=== PATIENT | female | born 1965 | race Caucasian/White ===

== ENCOUNTER 2017-12-25 05:57 | Inpatient (IN) ==
[2017-12-25] MEDS ORDERED: POTASSIUM CHLORIDE RIDER 10 MEQ in PREMIX 1 EACH IV PRN (06:16)
[2017-12-25] MEDS ORDERED: MAGNESIUM SULF RIDER 2 GM in PREMIX 1 EACH IV PRN (06:16)
[2017-12-25] MEDS ORDERED: DIAZEPAM 5 MG TABLET PO ONE (06:30)
[2017-12-25] MEDS ORDERED: ASPIRIN 325 MG TABLET PO ONE (06:30)
[2017-12-25] MEDS ORDERED: diphenhydrAMINE CAP 25 MG CAPSULE PO ONE (06:30)
[2017-12-25 07:14] LABS: Basophils # 0.1 10*3/uL (0.0-0.2); Basophils % 0.8 % (0.0-0.8); Eosinophils # 0.2 10*3/uL (0.0-0.87); Eosinophils % 2.9 % (0.00-10.9); Hematocrit 40.3 VOL% (35.7-47.0); Hemoglobin 12.8 GM/DL (12.0-16.0); Immature Granulocytes % 0.5 %; Immature Granulocytes Absolute 0.04 #; Lymphocytes % 11.9 % (21.3-54.2); Mean Corpuscular HGB Conc 31.8 GM/DL (32-36); Mean Corpuscular Hemoglobin 27 PG (27-34); Mean Corpuscular Volume 85.7 FL (87-102); Mean Platelet Volume 10.8 FL (9.6-12.0); Monocytes # 0.5 10*3/uL (0.11-0.8); Monocytes % 6.3 % (1.7-12.7); Neutrophils # 6.5 10*3/uL (1.4-7.4); Neutrophils % 77.6 % (38.7-73.9); Platelet Count 283 T/CUMM (130-400); Red Cell Distribution Width 13.7 % (9.3-17.3); White Blood Count 8.4 T/CUMM (4-12)
[2017-12-25 07:23] LABS: INR 1.1; PT Patient Result 11.4 SECS
[2017-12-25 07:39] LABS: Calcium 9.2 MG/DL (8.5-10.1); Osmolality,Calculated 284.4 MOS/KG (273-304); Potassium 3.9 MMOL/L (3.5-5.1)
[2017-12-25] MEDS ORDERED: diphenhydrAMINE CAP 25 MG CAPSULE ONE (09:11)
[2017-12-25] MEDS ORDERED: ASPIRIN 325 MG TABLET ONE (09:11)
[2017-12-25] MEDS ORDERED: DIAZEPAM 5 MG TABLET ONE (09:11)
[2017-12-25] MEDS: SODIUM CHLORIDE 0.9% 1,000 ML IV SCH ×2 (09:14→17:14)
[2017-12-25] MEDS ORDERED: DILTIAZEM 50 MG/10 ML VIAL IV ONE (09:45)
[2017-12-25] MEDS ORDERED: DILTIAZEM 100 MG VIAL.ADD IV ONE ×3 (09:49→09:56)
[2017-12-25] MEDS: DILTIAZEM INJ 100 MG in SODIUM CHLORIDE 0.9% 100 ML IV SCH ×2 (10:10→14:43)
[2017-12-25] MEDS ORDERED: HEPARIN/NACL 0.9% 2 UNITS/ML 2,000 ML IV ONE (10:52)
[2017-12-25] MEDS ORDERED: LIDOCAINE 2% 20 ML VIAL ONE (10:52)
[2017-12-25] MEDS ORDERED: HYDROmorphone 2 MG/1 ML VIAL ONE (11:13)
[2017-12-25] MEDS ORDERED: MIDAZOLAM 2 MG/2 ML VIAL ONE (11:13)
[2017-12-25] MEDS ORDERED: HEPARIN 5,000 UNIT/1 ML VIAL ONE (11:47)
[2017-12-25] MEDS ORDERED: ZALEPLON 5 MG CAPSULE PO PRN (13:21)
[2017-12-25] MEDS ORDERED: FUROSEMIDE 40 MG TABLET PO SCH (16:00)
[2017-12-25] MEDS: ONDANSETRON 4 MG/2 ML VIAL IV PRN (19:54)
[2017-12-25] MEDS: POTASSIUM GLUCONATE 500 MG TABLET PO SCH (23:09)
[2017-12-25] MEDS: BIMATOPROST 0.01% OPH SOLN 2.5 ML BOTTLE BOTH EYES SCH (23:09)
[2017-12-26] MEDS: DILTIAZEM INJ 100 MG in SODIUM CHLORIDE 0.9% 100 ML IV SCH ×2 (01:06→15:54)
[2017-12-26] MEDS: SODIUM CHLORIDE 0.9% 1,000 ML IV SCH ×2 (04:10→14:19)
[2017-12-26 05:57] LABS: Calcium 8.8 MG/DL (8.5-10.1); Osmolality,Calculated 281.5 MOS/KG (273-304); Potassium 4.5 MMOL/L (3.5-5.1)
[2017-12-26] MEDS: FUROSEMIDE 40 MG/4 ML VIAL IV SCH ×2 (09:34→16:19)
[2017-12-26] MEDS: POTASSIUM GLUCONATE 500 MG TABLET PO SCH ×2 (09:35→20:51)
[2017-12-26] MEDS: ENOXAPARIN 100 MG/ML SYRINGE SUBCUT SCH ×2 (09:35→20:51)
[2017-12-26] MEDS: SOTALOL 80 MG TABLET PO SCH ×2 (09:35→20:51)
[2017-12-26] MEDS: ONDANSETRON 4 MG/2 ML VIAL IV PRN (12:44)
[2017-12-26] MEDS: BIMATOPROST 0.01% OPH SOLN 2.5 ML BOTTLE BOTH EYES SCH (20:51)
[2017-12-27] MEDS: SODIUM CHLORIDE 0.9% 1,000 ML IV SCH ×2 (00:42→09:21)
[2017-12-27 05:53] LABS: Basophils # 0.1 10*3/uL (0.0-0.2); Basophils % 0.6 % (0.0-0.8); Eosinophils # 0.1 10*3/uL (0.0-0.87); Eosinophils % 1.4 % (0.00-10.9); Hematocrit 37.8 VOL% (35.7-47.0); Immature Granulocytes % 0.5 %; Immature Granulocytes Absolute 0.04 #; Lymphocytes # 1.4 10*3/uL (1.4-4.0); Lymphocytes % 15.7 % (21.3-54.2); Mean Corpuscular HGB Conc 31.7 GM/DL (32-36); Mean Corpuscular Hemoglobin 27 PG (27-34); Mean Corpuscular Volume 85.5 FL (87-102); Mean Platelet Volume 11.4 FL (9.6-12.0); Monocytes # 0.7 10*3/uL (0.11-0.8); Monocytes % 7.6 % (1.7-12.7); Neutrophils # 6.6 10*3/uL (1.4-7.4); Neutrophils % 74.2 % (38.7-73.9); Platelet Count 290 T/CUMM (130-400); Red Blood Count 4.42 MC/CUMM (3.8-5.5); Red Cell Distribution Width 13.8 % (9.3-17.3); White Blood Count 8.9 T/CUMM (4-12)
[2017-12-27 06:51] LABS: Calcium 8.7 MG/DL (8.5-10.1); Osmolality,Calculated 282.5 MOS/KG (273-304); Potassium 4.6 MMOL/L (3.5-5.1)
[2017-12-27] MEDS: FUROSEMIDE 40 MG/4 ML VIAL IV SCH ×2 (09:13→15:31)
[2017-12-27] MEDS: ENOXAPARIN 100 MG/ML SYRINGE SUBCUT SCH ×2 (09:16→21:42)
[2017-12-27] MEDS: POTASSIUM GLUCONATE 500 MG TABLET PO SCH ×2 (09:16→21:43)
[2017-12-27] MEDS: SOTALOL 80 MG TABLET PO SCH ×2 (09:20→22:52)
[2017-12-27] MEDS: BIMATOPROST 0.01% OPH SOLN 2.5 ML BOTTLE BOTH EYES SCH (21:43)
[2017-12-28 04:45] LABS: Basophils # 0.1 10*3/uL (0.0-0.2); Basophils % 0.9 % (0.0-0.8); Eosinophils # 0.3 10*3/uL (0.0-0.87); Eosinophils % 3.4 % (0.00-10.9); Hematocrit 35.9 VOL% (35.7-47.0); Hemoglobin 11.5 GM/DL (12.0-16.0); Immature Granulocytes % 0.6 %; Immature Granulocytes Absolute 0.05 #; Lymphocytes # 1.5 10*3/uL (1.4-4.0); Lymphocytes % 17.2 % (21.3-54.2); Mean Corpuscular Hemoglobin 27 PG (27-34); Mean Corpuscular Volume 84.5 FL (87-102); Mean Platelet Volume 11.1 FL (9.6-12.0); Monocytes # 0.6 10*3/uL (0.11-0.8); Monocytes % 6.7 % (1.7-12.7); Neutrophils # 6.1 10*3/uL (1.4-7.4); Neutrophils % 71.2 % (38.7-73.9); Platelet Count 254 T/CUMM (130-400); Red Blood Count 4.25 MC/CUMM (3.8-5.5); Red Cell Distribution Width 13.7 % (9.3-17.3); White Blood Count 8.5 T/CUMM (4-12)
[2017-12-28 05:13] LABS: Calcium 8.5 MG/DL (8.5-10.1); Osmolality,Calculated 282.5 MOS/KG (273-304); Potassium 4.7 MMOL/L (3.5-5.1)
[2017-12-28] MEDS: SOTALOL 80 MG TABLET PO SCH ×2 (08:30→21:06)
[2017-12-28] MEDS: ENOXAPARIN 100 MG/ML SYRINGE SUBCUT SCH ×2 (08:30→21:06)
[2017-12-28] MEDS: POTASSIUM GLUCONATE 500 MG TABLET PO SCH ×2 (08:31→21:06)
[2017-12-28] MEDS: ASPIRIN EC 81 MG TABLET PO SCH (12:35)
[2017-12-28] MEDS: FUROSEMIDE 40 MG/4 ML VIAL IV SCH ×2 (12:35→16:42)
[2017-12-28 15:22] LABS: Apearance,Urine CLEAR (Clear); Bilirubin,Urine Negative (Negative); Blood, Urine Negative (Negative); Glucose,Urine (UA) Negative (Negative); Ketones,Urine Negative (Negative); Mucus,Urine Occasional /LPF (Occasional); Nitrite,Urine Negative (Negative); Protein,Urine Negative; RBC,Urine 1 /HPF (0-4); Squamous Epithelial Cell,Urine Occasional /HPF (0-10); Urine Color Yellow (Yellow); Urine Specific Gravity 1.011 (1.001-1.035); WBC,Urine 1 /HPF (0-6)
[2017-12-28] MEDS: BIMATOPROST 0.01% OPH SOLN 2.5 ML BOTTLE BOTH EYES SCH (21:07)
[2017-12-29 05:28] LABS: Basophils # 0.1 10*3/uL (0.0-0.2); Eosinophils # 0.2 10*3/uL (0.0-0.87); Eosinophils % 2.7 % (0.00-10.9); Hematocrit 35.7 VOL% (35.7-47.0); Hemoglobin 11.5 GM/DL (12.0-16.0); Immature Granulocytes % 0.4 %; Immature Granulocytes Absolute 0.03 #; Lymphocytes # 1.1 10*3/uL (1.4-4.0); Lymphocytes % 14.1 % (21.3-54.2); Mean Corpuscular HGB Conc 32.2 GM/DL (32-36); Mean Corpuscular Hemoglobin 27 PG (27-34); Mean Corpuscular Volume 84.8 FL (87-102); Mean Platelet Volume 10.8 FL (9.6-12.0); Monocytes # 0.6 10*3/uL (0.11-0.8); Monocytes % 7.4 % (1.7-12.7); NRBC # 0.02 10*3/uL; Neutrophils # 5.8 10*3/uL (1.4-7.4); Neutrophils % 74.4 % (38.7-73.9); Platelet Count 257 T/CUMM (130-400); Red Blood Count 4.21 MC/CUMM (3.8-5.5); Red Cell Distribution Width 13.8 % (9.3-17.3); White Blood Count 7.8 T/CUMM (4-12)
[2017-12-29 05:52] LABS: Calcium 8.4 MG/DL (8.5-10.1); Osmolality,Calculated 283.4 MOS/KG (273-304); Potassium 3.7 MMOL/L (3.5-5.1)
[2017-12-29 06:13] LABS: Risk Ratio 4.58
[2017-12-29] MEDS ORDERED: DEXTROSE 50% 25 GM/50 ML VIAL IV PRN (08:04)
[2017-12-29] MEDS ORDERED: GLUCAGON 1 MG VIAL IM PRN (08:04)
[2017-12-29] MEDS: SOTALOL 80 MG TABLET PO SCH ×2 (08:49→21:50)
[2017-12-29] MEDS: ASPIRIN EC 81 MG TABLET PO SCH (08:49)
[2017-12-29] MEDS: ENOXAPARIN 100 MG/ML SYRINGE SUBCUT SCH ×2 (08:49→21:50)
[2017-12-29] MEDS: POTASSIUM GLUCONATE 500 MG TABLET PO SCH ×2 (08:56→21:50)
[2017-12-29] MEDS: CHLORHEXIDINE 0.12% ORAL RINSE 60 ML BOTTLE SWISH/SPIT SCH ×2 (08:56→21:50)
[2017-12-29] MEDS: SODIUM CHLORIDE 0.9% 1,000 ML IV SCH (08:57)
[2017-12-29 09:52] LABS: ABG HCO3 25.3 MMOL/L (20-26); ABG Oxygen Saturation 96.4 % (95-100); ABG PH 7.437 (7.35-7.45); ABG PO2 81.3 MM HG (80-95)
[2017-12-29] MEDS: FUROSEMIDE 40 MG/4 ML VIAL IV SCH ×2 (12:00→16:42)
[2017-12-29] MEDS: BIMATOPROST 0.01% OPH SOLN 2.5 ML BOTTLE BOTH EYES SCH (21:50)
[2017-12-30] MEDS: ACETAMINOPHEN 325 MG TABLET PO PRN ×2 (03:14→09:48)
[2017-12-30] MEDS: ONDANSETRON 4 MG/2 ML VIAL IV PRN (03:14)
[2017-12-30] MEDS: ENOXAPARIN 100 MG/ML SYRINGE SUBCUT SCH ×2 (09:01→20:34)
[2017-12-30] MEDS: ASPIRIN EC 81 MG TABLET PO SCH (09:02)
[2017-12-30] MEDS: SOTALOL 80 MG TABLET PO SCH ×2 (09:03→22:07)
[2017-12-30] MEDS: POTASSIUM GLUCONATE 500 MG TABLET PO SCH ×2 (09:03→22:07)
[2017-12-30] MEDS: CHLORHEXIDINE 0.12% ORAL RINSE 60 ML BOTTLE SWISH/SPIT SCH ×2 (09:04→20:34)
[2017-12-30] MEDS: SODIUM CHLORIDE 0.9% 1,000 ML IV SCH (10:14)
[2017-12-30] MEDS: FUROSEMIDE 40 MG/4 ML VIAL IV SCH ×2 (11:37→16:28)
[2017-12-30] MEDS: BIMATOPROST 0.01% OPH SOLN 2.5 ML BOTTLE BOTH EYES SCH (20:35)
[2017-12-31 05:09] LABS: Calcium 8.9 MG/DL (8.5-10.1); Osmolality,Calculated 281.5 MOS/KG (273-304); Potassium 4.5 MMOL/L (3.5-5.1)
[2017-12-31] MEDS: CEFUROXIME INJ 1,500 MG in SYRINGE 1 EACH IV ONE (09:40)
[2017-12-31] MEDS: SODIUM CHLORIDE 0.9% 1,000 ML IV SCH (09:40)
[2017-12-31] MEDS: POTASSIUM GLUCONATE 500 MG TABLET PO SCH ×2 (09:46→22:58)
[2017-12-31] MEDS: ENOXAPARIN 100 MG/ML SYRINGE SUBCUT SCH ×2 (09:47→22:58)
[2017-12-31] MEDS: ASPIRIN EC 81 MG TABLET PO SCH (09:47)
[2017-12-31] MEDS: CHLORHEXIDINE 4% SOLN 118 ML BOTTLE TOP SCH ×3 (09:47→23:00)
[2017-12-31] MEDS: FUROSEMIDE 40 MG/4 ML VIAL IV SCH ×2 (09:47→16:46)
[2017-12-31] MEDS: SOTALOL 80 MG TABLET PO SCH ×2 (09:47→22:57)
[2017-12-31] MEDS: CHLORHEXIDINE 0.12% ORAL RINSE 60 ML BOTTLE SWISH/SPIT SCH ×2 (09:48→22:58)
[2017-12-31] MEDS: DIAZEPAM 5 MG TABLET PO ONE (12:28)
[2017-12-31] MEDS: FAMOTIDINE 20 MG/2 ML VIAL IV ONE (12:28)
[2017-12-31] MEDS: BIMATOPROST 0.01% OPH SOLN 2.5 ML BOTTLE BOTH EYES SCH (22:57)
[2018-01-01] MEDS ORDERED: VANCOMYCIN 1,000 MG VIAL ONE (05:22)
[2018-01-01] MEDS ORDERED: CEFUROXIME INJ 1,500 MG in SYRINGE 1 EACH IV ONE (05:30)
[2018-01-01] MEDS ORDERED: CALCIUM CHLORIDE 1,000 MG/10 ML VIAL IV ONE (05:31)
[2018-01-01] MEDS ORDERED: VECURONIUM 10 MG VIAL IV ONE (05:31)
[2018-01-01] MEDS ORDERED: HEPARIN/NACL 0.9% 2 UNITS/ML 500 ML IV ONE (05:31)
[2018-01-01] MEDS ORDERED: SUFentanil 250 MCG/5 ML AMP ONE (05:31)
[2018-01-01] MEDS ORDERED: TRANEXAMIC ACID 1,000 MG/10 ML VIAL IV ONE (05:31)
[2018-01-01] MEDS ORDERED: MIDAZOLAM 10 MG/2 ML VIAL ONE (05:31)
[2018-01-01] MEDS ORDERED: PHENYLEPHRINE DRIP 20 MG/250 ML PREMIX IV ONE (05:32)
[2018-01-01] MEDS ORDERED: NITROGLYCERIN DRIP 50 MG/250 ML BOTTLE IV ONE (05:32)
[2018-01-01] MEDS: SOTALOL 80 MG TABLET PO SCH ×2 (05:41→09:17)
[2018-01-01] MEDS: FAMOTIDINE 20 MG/2 ML VIAL IV ONE (05:42)
[2018-01-01] MEDS: DIAZEPAM 5 MG TABLET PO ONE (05:42)
[2018-01-01] MEDS ORDERED: ePHEDrine 50 MG/ML AMP ONE (05:46)
[2018-01-01] MEDS ORDERED: DIAZEPAM 5 MG TABLET PO ONE (06:00)
[2018-01-01] MEDS ORDERED: FAMOTIDINE 20 MG/2 ML VIAL IV ONE (06:00)
[2018-01-01] MEDS: CEFUROXIME INJ 1,500 MG in SYRINGE 1 EACH IV ONE (07:03)
[2018-01-01] MEDS ORDERED: CALCIUM CHLORIDE 1,000 MG/10 ML SYRINGE IV ONE (07:35)
[2018-01-01] MEDS ORDERED: POTASSIUM CHLORIDE RIDER 100 ML IV ONE (07:35)
[2018-01-01] MEDS ORDERED: NITROPRUSSIDE 50 MG/2 ML VIAL ONE (07:35)
[2018-01-01] MEDS ORDERED: PHENYLEPHRINE DRIP 40 MG/250 ML PREMIX IV ONE (07:35)
[2018-01-01] MEDS ORDERED: ALBUMIN 5% 12.5 GM/250 ML VIAL IV ONE (07:36)
[2018-01-01 07:38] LABS: ABG Base Excess 3.7 MMOL/L (-2.5-2.5); ABG HCO3 27.8 MMOL/L (20-26); ABG PCO2 37.3 MM HG (35-48); ABG PH 7.473 (7.35-7.45); ABG TCO2 24.4 MMOL/L (23-27); Glucose Heart Surgery 91 MG/DL (74-106); Hematocrit Heart Surgery 34.2 PERCENT (37-47); Hemoglobin Heart Surgery 11.1 G/DL (12.0-16.0); Ionized Calcium Arterial 1.14 MMOL/L (1.21-1.46); PCO2 Patient Temp Arterial 37.3 MMHG; PH Patient Temp Arterial 7.473; Patient Temperature 37 CELCIUS; Sodium Heart/CVR 140 MMOL/L (135-145)
[2018-01-01 07:41] LABS: Apearance,Urine CLEAR (Clear); Bacteria,Urine Occasional /HPF (Few); Bilirubin,Urine Negative (Negative); Blood, Urine Negative (Negative); Glucose,Urine (UA) Negative (Negative); Hyaline Casts,Urine 1 /LPF (0-3); Ketones,Urine Negative (Negative); Mucus,Urine Occasional /LPF (Occasional); Nitrite,Urine Negative (Negative); Protein,Urine Negative; RBC,Urine <1 /HPF (0-4); Squamous Epithelial Cell,Urine Occasional /HPF (0-10); Urine Color Yellow (Yellow); Urine Specific Gravity 1.006 (1.001-1.035); Urine Urobilinogen < 2.0 EU/DL (0.2-1.0); WBC,Urine <1 /HPF (0-6)
[2018-01-01 08:25] LABS: Hematocrit Heart Surgery 22.8 PERCENT (37-47); Hemoglobin Heart Surgery 7.3 G/DL (12.0-16.0); PCO2 Patient Temp Venous 31.5 MM HG; PH Patient Temp Venous 7.539; PO2 Patient Temp Venous 36.2 MM HG; Potassium Heart/CVR 3.2 MMOL/L (3.5-5.1); VBG Base Excess 4.5 MEQ/L (0-4); VBG HCO3 28.3 MEQ/L (24-28); VBG Oxygen Saturation 82.5 %; VBG PCO2 36.4 MMHG (41-51); VBG PH 7.494; VBG PO2 44.5 MMHG (17-40)
[2018-01-01 08:55] LABS: Hematocrit Heart Surgery 24.4 PERCENT (37-47); Hemoglobin Heart Surgery 7.8 G/DL (12.0-16.0); PCO2 Patient Temp Venous 31.4 MM HG; PH Patient Temp Venous 7.562; PO2 Patient Temp Venous 35.9 MM HG; VBG Base Excess 6.2 MEQ/L (0-4); VBG HCO3 29.8 MEQ/L (24-28); VBG PCO2 36.4 MMHG (41-51); VBG PH 7.516; VBG PO2 44.2 MMHG (17-40)
[2018-01-01] MEDS: ENOXAPARIN 100 MG/ML SYRINGE SUBCUT SCH (09:16)
[2018-01-01] MEDS: FUROSEMIDE 40 MG/4 ML VIAL IV SCH (09:16)
[2018-01-01] MEDS: ASPIRIN EC 81 MG TABLET PO SCH (09:17)
[2018-01-01] MEDS: POTASSIUM GLUCONATE 500 MG TABLET PO SCH (09:17)
[2018-01-01] MEDS: CHLORHEXIDINE 0.12% ORAL RINSE 60 ML BOTTLE SWISH/SPIT SCH (09:17)
[2018-01-01 09:29] LABS: Hemoglobin Heart Surgery 9.1 G/DL (12.0-16.0); PH Patient Temp Venous 7.637; PO2 Patient Temp Venous 38.1 MM HG; Potassium Heart/CVR 3.1 MMOL/L (3.5-5.1); VBG HCO3 27.8 MEQ/L (24-28); VBG Oxygen Saturation 85.4 %; VBG PCO2 29.7 MMHG (41-51); VBG PH 7.589; VBG PO2 47.1 MMHG (17-40)
[2018-01-01] MEDS: SODIUM CHLORIDE 0.9% 1,000 ML IV SCH (09:29)
[2018-01-01 09:55] LABS: Hematocrit Heart Surgery 26.5 PERCENT (37-47); Hemoglobin Heart Surgery 8.5 G/DL (12.0-16.0); PCO2 Patient Temp Venous 34.4 MM HG; PH Patient Temp Venous 7.543; PO2 Patient Temp Venous 37.7 MM HG; Potassium Heart/CVR 4.6 MMOL/L (3.5-5.1); VBG Base Excess 6.8 MEQ/L (0-4); VBG HCO3 30.3 MEQ/L (24-28); VBG Oxygen Saturation 75.3 %; VBG PCO2 34.4 MMHG (41-51); VBG PH 7.543; VBG PO2 37.7 MMHG (17-40)
[2018-01-01 10:18] LABS: ABG Base Excess 6.4 MMOL/L (-2.5-2.5); ABG HCO3 30.3 MMOL/L (20-26); ABG PCO2 33.3 MM HG (35-48); ABG PH 7.548 (7.35-7.45); ABG TCO2 26.8 MMOL/L (23-27); Glucose Heart Surgery 131 MG/DL (74-106); Hematocrit Heart Surgery 26.2 PERCENT (37-47); Hemoglobin Heart Surgery 8.4 G/DL (12.0-16.0); PCO2 Patient Temp Arterial 33.3 MMHG; PH Patient Temp Arterial 7.548; Patient Temperature 37 CELCIUS; Potassium Heart/CVR 3.3 MMOL/L (3.5-5.1); Sodium Heart/CVR 136 MMOL/L (135-145)
[2018-01-01] MEDS ORDERED: SODIUM BICARBONATE 50 MEQ/50 ML SYRINGE IV ONE (10:24)
[2018-01-01] MEDS ORDERED: DEXTROSE 5% KCL 20 MEQ 20 MEQ/1,000 ML BAG IV ONE (10:24)
[2018-01-01] MEDS ORDERED: PROTAMINE SULFATE 250 MG/25 ML VIAL IV ONE (10:24)
[2018-01-01] MEDS ORDERED: MANNITOL 12.5 GM/50 ML VIAL IV ONE (10:24)
[2018-01-01] MEDS ORDERED: ALBUMIN 25% 25 GM/100 ML VIAL IV ONE (10:24)
[2018-01-01] MEDS ORDERED: HEPARIN 10,000 UNIT/10 ML VIAL ONE (10:24)
[2018-01-01] MEDS ORDERED: methylPREDNISolone SOD SUC 1,000 MG/8 ML VIAL ONE (10:24)
[2018-01-01] MEDS ORDERED: MAGNESIUM SULFATE 1 GM/2 ML VIAL ONE (10:24)
[2018-01-01] MEDS ORDERED: PROTAMINE SULFATE 50 MG/5 ML VIAL IV ONE ×3 (10:25→11:48)
[2018-01-01] MEDS ORDERED: POTASSIUM CHLORIDE 20 MEQ/10 ML VIAL ONE (10:25)
[2018-01-01] MEDS ORDERED: FUROSEMIDE 20 MG/2 ML VIAL ONE (10:25)
[2018-01-01] MEDS ORDERED: DOBUTamine 500 MG/250 ML PREMIX IV ONE ×2 (10:36→11:04)
[2018-01-01] MEDS ORDERED: LACTATED RINGERS 1,000 ML IV ONE (11:03)
[2018-01-01] MEDS ORDERED: SEVOFLURANE 1 UNIT/15 MINUTE INH ONE (11:03)
[2018-01-01] MEDS ORDERED: SODIUM CHLORIDE 0.9% 250 ML IV ONE (11:03)
[2018-01-01] MEDS ORDERED: SODIUM CHLORIDE 0.9% 1,000 ML IV ONE (11:03)
[2018-01-01] MEDS ORDERED: ETOMIDATE 40 MG/20 ML VIAL IV ONE (11:03)
[2018-01-01] MEDS ORDERED: ACETAMINOPHEN 650 MG SUPP RECTAL PRN (11:12)
[2018-01-01] MEDS ORDERED: DEXTROSE 50% 25 GM/50 ML VIAL IV PRN ×2 (11:12)
[2018-01-01] MEDS ORDERED: MIDAZOLAM 10 MG/2 ML VIAL IV PRN (11:12)
[2018-01-01] MEDS ORDERED: MAGNESIUM SULF RIDER 2 GM in PREMIX 1 EACH IV PRN (11:12)
[2018-01-01] MEDS ORDERED: INSULIN REGULAR 100 UNIT/ML IV PRN (11:12)
[2018-01-01] MEDS ORDERED: VECURONIUM 10 MG VIAL IV PRN ×2 (11:12)
[2018-01-01] MEDS ORDERED: CALCIUM CHLORIDE 1,000 MG/10 ML SYRINGE IV PRN (11:12)
[2018-01-01] MEDS ORDERED: MIDAZOLAM 2 MG/2 ML VIAL IV PRN (11:12)
[2018-01-01] MEDS ORDERED: MAGNESIUM SULF RIDER 4 GM in PREMIX 1 EACH IV PRN (11:12)
[2018-01-01] MEDS ORDERED: ONDANSETRON 4 MG/2 ML VIAL IV PRN (11:12)
[2018-01-01] MEDS ORDERED: NITROPRUSSIDE 100 MG in DEXTROSE 5% 250 ML IV PRN (11:12)
[2018-01-01] MEDS ORDERED: PHENYLEPHRINE DRIP 40 MG/250 ML PREMIX IV PRN (11:12)
[2018-01-01] MEDS ORDERED: LACTATED RINGERS 250 ML IV PRN (11:12)
[2018-01-01] MEDS ORDERED: MORPHINE 2 MG/1 ML SYRINGE IV PRN (11:12)
[2018-01-01] MEDS ORDERED: INSULIN REGULAR 100 UNIT/ML IV ONE (11:12)
[2018-01-01] MEDS ORDERED: MORPHINE 10 MG/1 ML VIAL IV PRN (11:12)
[2018-01-01] MEDS ORDERED: POTASSIUM CHLORIDE RIDER 10 MEQ in PREMIX 1 EACH IV PRN (11:12)
[2018-01-01] MEDS ORDERED: DOBUTamine 500 MG/250 ML PREMIX IV SCH (11:15)
[2018-01-01 11:21] LABS: ABG Base Excess 5.6 MMOL/L (-2.5-2.5); ABG HCO3 29.5 MMOL/L (20-26); ABG PCO2 32.7 MM HG (35-48); ABG PH 7.542 (7.35-7.45); ABG TCO2 25.3 MMOL/L (23-27); Glucose Heart Surgery 126 MG/DL (74-106); Hematocrit Heart Surgery 31.4 PERCENT (37-47); Hemoglobin Heart Surgery 10.2 G/DL (12.0-16.0); Potassium Heart/CVR 3.8 MMOL/L (3.5-5.1)
[2018-01-01 11:25] LABS: Basophils % 0.3 % (0.0-0.8); Eosinophils # 0.1 10*3/uL (0.0-0.87); Eosinophils % 1.6 % (0.00-10.9); Hematocrit 28.9 VOL% (35.7-47.0); Hemoglobin 9.5 GM/DL (12.0-16.0); Immature Granulocytes % 1.9 %; Immature Granulocytes Absolute 0.15 #; Lymphocytes # 0.8 10*3/uL (1.4-4.0); Lymphocytes % 9.6 % (21.3-54.2); Mean Corpuscular HGB Conc 32.9 GM/DL (32-36); Mean Corpuscular Hemoglobin 28 PG (27-34); Mean Corpuscular Volume 83.5 FL (87-102); Mean Platelet Volume 10.9 FL (9.6-12.0); Monocytes # 0.3 10*3/uL (0.11-0.8); Monocytes % 3.8 % (1.7-12.7); Neutrophils # 6.6 10*3/uL (1.4-7.4); Neutrophils % 82.8 % (38.7-73.9); Platelet Count 141 T/CUMM (130-400); Red Blood Count 3.46 MC/CUMM (3.8-5.5); Red Cell Distribution Width 14.5 % (9.3-17.3)
[2018-01-01] MEDS: ALBUMIN 5% 12.5 GM in PREMIX 1 EACH IV PRN ×2 (11:25→11:51)
[2018-01-01] MEDS ORDERED: INSULIN REGULAR DRIP 100 ML IV SCH (11:30)
[2018-01-01] MEDS ORDERED: SODIUM CHLORIDE 0.45% 1,000 ML IV SCH ×2 (11:30)
[2018-01-01 11:34] LABS: INR 1.4; PT Patient Result 14.7 SECS; Partial Thromboplastin Time 35.4 SECS (0-40)
[2018-01-01 11:55] LABS: Albumin 2.8 G/DL (3.4-5.0); Bilirubin,Total 1.6 MG/DL (0.2-1.0); Calcium 8.8 MG/DL (8.5-10.1); Osmolality,Calculated 281.4 MOS/KG (273-304); Total Protein 4.9 G/DL (6.4-8.3)
[2018-01-01] MEDS: LACTATED RINGERS 1,000 ML IV PRN ×2 (12:00→13:02)
[2018-01-01] MEDS: POTASSIUM CHLORIDE RIDER 20 MEQ in PREMIX 1 EACH IV PRN ×2 (12:00→14:08)
[2018-01-01] MEDS: KETOROLAC 30 MG/1 ML VIAL IV SCH ×2 (13:05→18:33)
[2018-01-01 13:26] LABS: ABG Base Excess 6.5 MMOL/L (-2.5-2.5); ABG HCO3 30.3 MMOL/L (20-26); ABG Oxygen Saturation 99.9 % (95-100); ABG PCO2 33.9 MM HG (35-48); ABG PH 7.543 (7.35-7.45); ABG TCO2 26.8 MMOL/L (23-27); Glucose Heart Surgery 148 MG/DL (74-106); Hematocrit Heart Surgery 27.5 PERCENT (37-47); Hemoglobin Heart Surgery 8.9 G/DL (12.0-16.0); Potassium Heart/CVR 3.8 MMOL/L (3.5-5.1)
[2018-01-01 15:42] LABS: ABG Base Excess 4.8 MMOL/L (-2.5-2.5); ABG HCO3 28.8 MMOL/L (20-26); ABG Oxygen Saturation 99.7 % (95-100); ABG PCO2 46.1 MM HG (35-48); ABG PH 7.421 (7.35-7.45); ABG TCO2 27.2 MMOL/L (23-27); Glucose Heart Surgery 159 MG/DL (74-106); Hematocrit Heart Surgery 31.1 PERCENT (37-47); Hemoglobin Heart Surgery 10.1 G/DL (12.0-16.0)
[2018-01-01 17:26] LABS: ABG Base Excess 4.7 MMOL/L (-2.5-2.5); ABG HCO3 28.8 MMOL/L (20-26); ABG Oxygen Saturation 97.7 % (95-100); ABG PCO2 41.3 MM HG (35-48); ABG PH 7.462 (7.35-7.45); ABG PO2 109.5 MM HG (80-95); ABG TCO2 30.1 MMOL/L (23-27); Glucose Heart Surgery 155 MG/DL (74-106); Hemoglobin Heart Surgery 10.7 G/DL (12.0-16.0); Potassium Heart/CVR 4.1 MMOL/L (3.5-5.1)
[2018-01-01] MEDS: CEFUROXIME INJ 1,500 MG in SYRINGE 1 EACH IV SCH (18:34)
[2018-01-01 19:15] LABS: VBG Base Excess 7.6 MEQ/L (0-4); VBG HCO3 30.8 MEQ/L (24-28); VBG Oxygen Saturation 67.4 %; VBG PCO2 54.1 MMHG (41-51); VBG PH 7.403; VBG PO2 37.7 MMHG (17-40)
[2018-01-01] MEDS ORDERED: CHLORHEXIDINE 0.12% ORAL RINSE 60 ML BOTTLE SWISH/SPIT SCH (21:00)
[2018-01-01] MEDS ORDERED: FUROSEMIDE 40 MG/4 ML VIAL IV PRN (21:33)
[2018-01-01 21:56] LABS: CKMB % 11.1 %
[2018-01-01 21:59] LABS: Troponin I Only 3.2 NG/ML (0.00-0.045)
[2018-01-02] MEDS: KETOROLAC 30 MG/1 ML VIAL IV SCH ×4 (00:14→17:46)
[2018-01-02 04:21] LABS: ABG Base Excess 5.4 MMOL/L (-2.5-2.5); ABG Oxygen Saturation 94.8 % (95-100); ABG PH 7.451 (7.35-7.45); ABG PO2 77.6 MM HG (80-95); ABG TCO2 31.3 MMOL/L (23-27); Glucose Heart Surgery 125 MG/DL (74-106); Hemoglobin Heart Surgery 10.3 G/DL (12.0-16.0); Potassium Heart/CVR 4.1 MMOL/L (3.5-5.1)
[2018-01-02 04:43] LABS: Basophils % 0.1 % (0.0-0.8); Hematocrit 29.6 VOL% (35.7-47.0); Hemoglobin 9.6 GM/DL (12.0-16.0); Immature Granulocytes % 0.6 %; Immature Granulocytes Absolute 0.08 #; Lymphocytes # 0.4 10*3/uL (1.4-4.0); Lymphocytes % 2.9 % (21.3-54.2); Mean Corpuscular HGB Conc 32.4 GM/DL (32-36); Mean Corpuscular Hemoglobin 27 PG (27-34); Mean Corpuscular Volume 84.3 FL (87-102); Mean Platelet Volume 11.4 FL (9.6-12.0); Monocytes # 0.3 10*3/uL (0.11-0.8); Monocytes % 2.1 % (1.7-12.7); Neutrophils # 13.6 10*3/uL (1.4-7.4); Neutrophils % 94.3 % (38.7-73.9); Platelet Count 129 T/CUMM (130-400); Red Blood Count 3.51 MC/CUMM (3.8-5.5); Red Cell Distribution Width 14.6 % (9.3-17.3); White Blood Count 14.4 T/CUMM (4-12)
[2018-01-02 04:51] LABS: Albumin 3.3 G/DL (3.4-5.0); Bilirubin,Direct 0.46 MG/DL (0.0-0.20); Bilirubin,Total 1.5 MG/DL (0.2-1.0); Calcium 8.6 MG/DL (8.5-10.1); Osmolality,Calculated 286.1 MOS/KG (273-304); Potassium 4.2 MMOL/L (3.5-5.1); Total Protein 5.4 G/DL (6.4-8.3)
[2018-01-02 04:52] LABS: CKMB % 9.5 %
[2018-01-02 04:53] LABS: Troponin I Only 3.15 NG/ML (0.00-0.045)
[2018-01-02 05:05] LABS: Band Neutrophils 1 % (0-10); Lymphocytes 3 % (20-55); Segmented Neutrophils 93 % (50-85); Total Cells Counted 100
[2018-01-02 05:07] LABS: Hypochromasia 1+; Microcytosis 1+; Ovalocytes Slight
[2018-01-02 05:10] LABS: Platelet Estimate Adequate
[2018-01-02] MEDS: CEFUROXIME INJ 1,500 MG in SYRINGE 1 EACH IV SCH (06:44)
[2018-01-02] MEDS ORDERED: DEXTROSE 50% 25 GM/50 ML VIAL IV PRN ×2 (08:04)
[2018-01-02] MEDS ORDERED: GLUCAGON 1 MG VIAL IM PRN ×2 (08:04)
[2018-01-02] MEDS ORDERED: MAGNESIUM HYDROXIDE SUSP 30 ML UDCUP PO PRN (08:04)
[2018-01-02] MEDS ORDERED: MAGNESIUM SULF RIDER 4 GM in PREMIX 1 EACH IV PRN (08:04)
[2018-01-02] MEDS ORDERED: KETOROLAC 30 MG/1 ML VIAL IV SCH (08:04)
[2018-01-02] MEDS ORDERED: MAGNESIUM SULF RIDER 2 GM in PREMIX 1 EACH IV PRN (08:04)
[2018-01-02] MEDS ORDERED: ALUMINUM/MAGNES/SIMETH MAX STR 30 ML UDCUP PO PRN (08:04)
[2018-01-02] MEDS ORDERED: ONDANSETRON 4 MG/2 ML VIAL IV PRN (08:04)
[2018-01-02] MEDS ORDERED: ACETAMINOPHEN 325 MG TABLET PO PRN (08:04)
[2018-01-02] MEDS ORDERED: ZALEPLON 5 MG CAPSULE PO PRN (08:04)
[2018-01-02] MEDS ORDERED: MORPHINE 2 MG/1 ML SYRINGE IV PRN (08:04)
[2018-01-02] MEDS ORDERED: SOTALOL 80 MG TABLET PO SCH (09:00)
[2018-01-02] MEDS: FERROUS SULFATE 325 MG TABLET PO SCH (09:36)
[2018-01-02] MEDS: SODIUM CHLOR 0.45% KCL 20 MEQ 20 MEQ/1,000 ML BAG IV SCH (09:36)
[2018-01-02] MEDS: DOCUSATE SODIUM 100 MG CAPSULE PO SCH (09:36)
[2018-01-02] MEDS: PANTOPRAZOLE 40 MG TABLET PO SCH (09:37)
[2018-01-02] MEDS: CHLORHEXIDINE 0.12% ORAL RINSE 60 ML BOTTLE SWISH/SPIT SCH ×2 (09:37→21:40)
[2018-01-02] MEDS: ASPIRIN EC 325 MG TABLET PO SCH (09:37)
[2018-01-02] MEDS: SOTALOL 80 MG TABLET PO SCH ×2 (09:55→21:40)
[2018-01-02] MEDS: WARFARIN 5 MG TABLET PO SCH (17:46)
[2018-01-02] MEDS ORDERED: CEFUROXIME INJ 1,500 MG in SYRINGE 1 EACH IV ONE (19:00)
[2018-01-03] MEDS: KETOROLAC 30 MG/1 ML VIAL IV SCH ×4 (01:45→17:34)
[2018-01-03] MEDS ORDERED: FUROSEMIDE 40 MG/4 ML VIAL IV ONE (06:00)
[2018-01-03 06:39] LABS: Basophils % 0.1 % (0.0-0.8); Eosinophils % 0.2 % (0.00-10.9); Hematocrit 27.2 VOL% (35.7-47.0); Hemoglobin 8.5 GM/DL (12.0-16.0); Immature Granulocytes Absolute 0.16 #; Lymphocytes # 1.3 10*3/uL (1.4-4.0); Lymphocytes % 7.6 % (21.3-54.2); Mean Corpuscular HGB Conc 31.3 GM/DL (32-36); Mean Corpuscular Hemoglobin 27 PG (27-34); Mean Corpuscular Volume 87.2 FL (87-102); Mean Platelet Volume 11.3 FL (9.6-12.0); Monocytes # 0.9 10*3/uL (0.11-0.8); Monocytes % 5.6 % (1.7-12.7); Neutrophils % 85.5 % (38.7-73.9); Platelet Count 155 T/CUMM (130-400); Red Blood Count 3.12 MC/CUMM (3.8-5.5); Red Cell Distribution Width 15.1 % (9.3-17.3); White Blood Count 16.4 T/CUMM (4-12)
[2018-01-03 07:18] LABS: Alanine Aminotransferase 89 U/L (13-56); Alkaline Phosphatase 54 U/L (45-117); Aspartate Amino Transferase 27 U/L (0-37); Bilirubin,Indirect 0.7 MG/DL (0.0-1.0); Blood Urea Nitrogen 28 MG/DL (7-18); Calcium 8.2 MG/DL (8.5-10.1); Glucose 78 MG/DL (74-106); Osmolality,Calculated 287.1 MOS/KG (273-304); Potassium 3.8 MMOL/L (3.5-5.1); Sodium 142 MMOL/L (136-145)
[2018-01-03] MEDS: SOTALOL 80 MG TABLET PO SCH ×2 (09:37→21:19)
[2018-01-03] MEDS: PANTOPRAZOLE 40 MG TABLET PO SCH (09:38)
[2018-01-03] MEDS: FERROUS SULFATE 325 MG TABLET PO SCH (09:38)
[2018-01-03] MEDS: DOCUSATE SODIUM 100 MG CAPSULE PO SCH (09:38)
[2018-01-03] MEDS: CHLORHEXIDINE 0.12% ORAL RINSE 60 ML BOTTLE SWISH/SPIT SCH ×2 (09:38→21:19)
[2018-01-03] MEDS: ASPIRIN EC 325 MG TABLET PO SCH (09:38)
[2018-01-03] MEDS: SODIUM CHLOR 0.45% KCL 20 MEQ 20 MEQ/1,000 ML BAG IV SCH (10:54)
[2018-01-03] MEDS: WARFARIN 5 MG TABLET PO SCH (17:34)
[2018-01-04] MEDS: KETOROLAC 30 MG/1 ML VIAL IV SCH ×4 (00:45→17:03)
[2018-01-04 06:44] LABS: Basophils % 0.2 % (0.0-0.8); Eosinophils # 0.3 10*3/uL (0.0-0.87); Eosinophils % 2.1 % (0.00-10.9); Hematocrit 25.9 VOL% (35.7-47.0); Hemoglobin 8.4 GM/DL (12.0-16.0); Immature Granulocytes % 0.9 %; Immature Granulocytes Absolute 0.11 #; Lymphocytes # 1.1 10*3/uL (1.4-4.0); Lymphocytes % 8.4 % (21.3-54.2); Mean Corpuscular HGB Conc 32.4 GM/DL (32-36); Mean Corpuscular Hemoglobin 28 PG (27-34); Mean Corpuscular Volume 84.9 FL (87-102); Mean Platelet Volume 11.9 FL (9.6-12.0); Monocytes # 0.8 10*3/uL (0.11-0.8); Monocytes % 6.7 % (1.7-12.7); Neutrophils # 10.2 10*3/uL (1.4-7.4); Neutrophils % 81.7 % (38.7-73.9); Platelet Count 159 T/CUMM (130-400); Red Blood Count 3.05 MC/CUMM (3.8-5.5); Red Cell Distribution Width 15.3 % (9.3-17.3); White Blood Count 12.5 T/CUMM (4-12)
[2018-01-04 07:06] LABS: INR 1.2; PT Patient Result 12.4 SECS
[2018-01-04 07:14] LABS: Alanine Aminotransferase 72 U/L (13-56); Albumin 2.9 G/DL (3.4-5.0); Alkaline Phosphatase 58 U/L (45-117); Aspartate Amino Transferase 22 U/L (0-37); Blood Urea Nitrogen 30 MG/DL (7-18); Calcium 8.2 MG/DL (8.5-10.1); Glucose 80 MG/DL (74-106); Osmolality,Calculated 283.4 MOS/KG (273-304); Potassium 3.8 MMOL/L (3.5-5.1); Sodium 140 MMOL/L (136-145); Troponin I Only 0.734 NG/ML (0.00-0.045)
[2018-01-04] MEDS ORDERED: INFLUENZA VIRUS VACCINE 0.5 ML SYRINGE IM ONE (09:00)
[2018-01-04] MEDS: SOTALOL 80 MG TABLET PO SCH ×2 (09:18→21:17)
[2018-01-04] MEDS: ENOXAPARIN 40 MG/0.4 ML SYRINGE SUBCUT SCH (09:18)
[2018-01-04] MEDS: FERROUS SULFATE 325 MG TABLET PO SCH (09:18)
[2018-01-04] MEDS: CHLORHEXIDINE 0.12% ORAL RINSE 60 ML BOTTLE SWISH/SPIT SCH ×2 (09:19→21:17)
[2018-01-04] MEDS: DOCUSATE SODIUM 100 MG CAPSULE PO SCH (09:19)
[2018-01-04] MEDS: ASPIRIN EC 325 MG TABLET PO SCH (09:19)
[2018-01-04] MEDS: PANTOPRAZOLE 40 MG TABLET PO SCH (09:19)
[2018-01-04] MEDS: WARFARIN 5 MG TABLET PO SCH (17:03)
[2018-01-05] MEDS: KETOROLAC 30 MG/1 ML VIAL IV SCH ×2 (02:37→08:01)
[2018-01-05 06:54] LABS: Calcium 8.5 MG/DL (8.5-10.1); Osmolality,Calculated 278.7 MOS/KG (273-304); Potassium 3.8 MMOL/L (3.5-5.1)
[2018-01-05 07:54] LABS: INR 1.4; PT Patient Result 14.7 SECS
[2018-01-05] MEDS: ENOXAPARIN 40 MG/0.4 ML SYRINGE SUBCUT SCH (09:36)
[2018-01-05] MEDS: FERROUS SULFATE 325 MG TABLET PO SCH (09:36)
[2018-01-05] MEDS: ASPIRIN EC 325 MG TABLET PO SCH (09:36)
[2018-01-05] MEDS: PANTOPRAZOLE 40 MG TABLET PO SCH (09:36)
[2018-01-05] MEDS: SOTALOL 80 MG TABLET PO SCH ×2 (09:36→21:06)
[2018-01-05] MEDS: DOCUSATE SODIUM 100 MG CAPSULE PO SCH (09:36)
[2018-01-05] MEDS: CHLORHEXIDINE 0.12% ORAL RINSE 60 ML BOTTLE SWISH/SPIT SCH ×2 (09:39→21:08)
[2018-01-05] MEDS: WARFARIN 5 MG TABLET PO SCH (17:46)
[2018-01-06] MEDS: oxyCODONE/ACETAMINOPHEN 5-325 MG TABLET PO PRN ×2 (04:38→22:23)
[2018-01-06 05:16] LABS: Basophils % 0.2 % (0.0-0.8); Eosinophils # 0.4 10*3/uL (0.0-0.87); Eosinophils % 3.6 % (0.00-10.9); Hematocrit 26.4 VOL% (35.7-47.0); Hemoglobin 8.2 GM/DL (12.0-16.0); Immature Granulocytes % 0.4 %; Immature Granulocytes Absolute 0.05 #; Lymphocytes # 0.9 10*3/uL (1.4-4.0); Lymphocytes % 7.5 % (21.3-54.2); Mean Corpuscular HGB Conc 31.1 GM/DL (32-36); Mean Corpuscular Hemoglobin 27 PG (27-34); Mean Platelet Volume 11.4 FL (9.6-12.0); Monocytes # 0.8 10*3/uL (0.11-0.8); Monocytes % 6.5 % (1.7-12.7); Neutrophils # 9.6 10*3/uL (1.4-7.4); Neutrophils % 81.8 % (38.7-73.9); Platelet Count 210 T/CUMM (130-400); Red Cell Distribution Width 15.6 % (9.3-17.3); White Blood Count 11.8 T/CUMM (4-12)
[2018-01-06 05:33] LABS: INR 1.4; PT Patient Result 14.7 SECS
[2018-01-06 05:47] LABS: Calcium 8.5 MG/DL (8.5-10.1); Osmolality,Calculated 278.5 MOS/KG (273-304); Potassium 3.6 MMOL/L (3.5-5.1)
[2018-01-06 06:14] LABS: Alanine Aminotransferase 54 U/L (13-56); Alkaline Phosphatase 70 U/L (45-117); Aspartate Amino Transferase 18 U/L (0-37); Bilirubin,Indirect 0.7 MG/DL (0.0-1.0); Blood Urea Nitrogen 20 MG/DL (7-18); Glucose 95 MG/DL (74-106); Osmolality,Calculated 277.7 MOS/KG (273-304); Potassium 3.6 MMOL/L (3.5-5.1); Sodium 138 MMOL/L (136-145); Total Protein 5.2 G/DL (6.4-8.3)
[2018-01-06 06:19] LABS: Troponin I Only 0.312 NG/ML (0.00-0.045)
[2018-01-06] MEDS: SOTALOL 80 MG TABLET PO SCH ×2 (08:28→21:12)
[2018-01-06] MEDS: ENOXAPARIN 40 MG/0.4 ML SYRINGE SUBCUT SCH (08:29)
[2018-01-06] MEDS: PANTOPRAZOLE 40 MG TABLET PO SCH (08:29)
[2018-01-06] MEDS: ASPIRIN EC 325 MG TABLET PO SCH (08:29)
[2018-01-06] MEDS: DOCUSATE SODIUM 100 MG CAPSULE PO SCH (08:29)
[2018-01-06] MEDS: FERROUS SULFATE 325 MG TABLET PO SCH (08:29)
[2018-01-06] MEDS: CHLORHEXIDINE 0.12% ORAL RINSE 60 ML BOTTLE SWISH/SPIT SCH ×2 (08:34→21:13)
[2018-01-06] MEDS ORDERED: WARFARIN 7.5 MG TABLET PO SCH (18:00)
[2018-01-06] MEDS: POTASSIUM CHLORIDE 20 MEQ TABLET PO PRN ×2 (21:12→22:24)
[2018-01-07 06:03] LABS: Basophils % 0.3 % (0.0-0.8); Eosinophils # 0.4 10*3/uL (0.0-0.87); Eosinophils % 4.4 % (0.00-10.9); Hematocrit 24.4 VOL% (35.7-47.0); Hemoglobin 7.7 GM/DL (12.0-16.0); Immature Granulocytes % 1.8 %; Immature Granulocytes Absolute 0.18 #; Lymphocytes # 0.9 10*3/uL (1.4-4.0); Lymphocytes % 9.1 % (21.3-54.2); Mean Corpuscular HGB Conc 31.6 GM/DL (32-36); Mean Corpuscular Hemoglobin 27 PG (27-34); Mean Corpuscular Volume 86.2 FL (87-102); Mean Platelet Volume 11.5 FL (9.6-12.0); Monocytes # 0.8 10*3/uL (0.11-0.8); Monocytes % 7.8 % (1.7-12.7); Neutrophils # 7.7 10*3/uL (1.4-7.4); Neutrophils % 76.6 % (38.7-73.9); Platelet Count 232 T/CUMM (130-400); Red Blood Count 2.83 MC/CUMM (3.8-5.5); Red Cell Distribution Width 15.5 % (9.3-17.3); White Blood Count 10.1 T/CUMM (4-12)
[2018-01-07 06:06] LABS: INR 1.7; PT Patient Result 17.6 SECS
[2018-01-07 06:18] LABS: Alanine Aminotransferase 44 U/L (13-56); Albumin 2.7 G/DL (3.4-5.0); Alkaline Phosphatase 57 U/L (45-117); Aspartate Amino Transferase 18 U/L (0-37); Bilirubin,Indirect 0.6 MG/DL (0.0-1.0); Calcium 8.3 MG/DL (8.5-10.1); Total Protein 5.1 G/DL (6.4-8.3)
[2018-01-07 06:19] LABS: Blood Urea Nitrogen 16 MG/DL (7-18); Glucose 88 MG/DL (74-106); Osmolality,Calculated 274.7 MOS/KG (273-304); Sodium 138 MMOL/L (136-145)
[2018-01-07 06:20] LABS: Troponin I Only 0.236 NG/ML (0.00-0.045)
[2018-01-07] MEDS: ENOXAPARIN 40 MG/0.4 ML SYRINGE SUBCUT SCH (09:16)
[2018-01-07] MEDS: ASPIRIN EC 325 MG TABLET PO SCH (09:17)
[2018-01-07] MEDS: FERROUS SULFATE 325 MG TABLET PO SCH (09:17)
[2018-01-07] MEDS: PANTOPRAZOLE 40 MG TABLET PO SCH (09:17)
[2018-01-07] MEDS: DOCUSATE SODIUM 100 MG CAPSULE PO SCH (09:17)
[2018-01-07] MEDS: SOTALOL 80 MG TABLET PO SCH (09:23)
[2018-01-07] MEDS: CHLORHEXIDINE 0.12% ORAL RINSE 60 ML BOTTLE SWISH/SPIT SCH (09:23)
[2018-01-07 10:13] VITALS: BP 90/51
== END 2018-01-07 13:06 | disposition home health service (06) | DRG 216 ==
LOC: N.CL 05:57 → N.TELES 13:33 → SUATTDRO 14:52 → N.CVR 01-01 07:28 → N.ICU 01-02 08:20 → N.TELES 01-02 14:18
PROVIDERS: ADMIT Internal Medicine Cardiovascular Disease; ATTEND Internal Medicine Cardiovascular Disease